=== PATIENT | female | born 1950 | race Caucasian/White ===

== ENCOUNTER 2020-05-06 06:22 | Day surgery (SDC) | payer BC, MEDICARE ==
[~2020-05-06] VITALS: Ht 175.3 cm; Wt 84.4 kg
[~2020-05-06 06:22] MED LIST: AMLO5TAB15 PO; ATOR40TA52 PO; CLOP75TA41 PO; FURO40TA4 PO; GLIP2.5T28 PO; LISI40TA11 PO; NAPR-505 PO
[2020-05-06] MEDS: HEPARIN IN NS 1000Units/500mL 0 ML ONE (07:14)
[2020-05-06] MEDS: LIDOCAINE 2%HCL (LOCAL ANESTH.) INJ 20ML MDV ONE (07:14)
[2020-05-06] MEDS: LIDOCAINE VISCOUS 2% 15ML UD PO ONE (07:30)
[2020-05-06] MEDS: MIDAZOLAM HCL 1MG/1ML-2 ML VIAL IV ONE (07:30)
[2020-05-06] MEDS: fentaNYL CITRATE 100 MCG/2 ML VL IV ONE (07:30)
== END 2020-05-06 09:00 | disposition home or self-care (01) ==
LOC: CATH 06:22
PROVIDERS: ATTEND Internal Medicine Cardiovascular Disease
DX: Z13.6 Encounter for screening for cardiovascular disorders (principal); I10 Essential (primary) hypertension; E78.5 Hyperlipidemia, unspecified; E11.9 Type 2 diabetes mellitus without complications; I62.9 Nontraumatic intracranial hemorrhage, unspecified; Z87.891 Personal history of nicotine dependence; Z88.0 Allergy status to penicillin; Z20.828 Contact with and (suspected) exposure to other viral communicable diseases; Z98.890 Other specified postprocedural states; Z79.899 Other long term (current) drug therapy
CPT/HCPCS: 93306; J2250; J3010; J7030; U0003; 99152